=== PATIENT | female | born 1975 | race African-American/Black ===

== ENCOUNTER 2017-07-28 21:18 | Emergency (ER) | payer SELFPAY ==
[2017-07-28] MEDS ORDERED: Sulfameth/Trimethoprim DS 800-160mg TAB ONE (21:40)
[2017-07-28] MEDS ORDERED: Ibuprofen 800 MG TAB ONE (21:40)
[2017-07-28] MEDS ORDERED: Bacitracin Zinc 1 Packet ONE (21:46)
[2017-07-28] MEDS ORDERED: cloNIDine 0.1 MG TAB ONE (21:50)
== END 2017-07-28 23:01 | disposition home or self-care (01) ==
LOC: NAV ERS 21:18
DX: L03.011 Cellulitis of right finger (principal); I10 Essential (primary) hypertension; E66.9 Obesity, unspecified; F17.210 Nicotine dependence, cigarettes, uncomplicated
CPT/HCPCS: 26010; 87070; 87077; 87186; 87205